=== PATIENT | male | born 1965 | race Caucasian/White ===

== ENCOUNTER 2017-09-26 03:38 | Emergency (ER) | payer BC ==
[~2017-09-26] VITALS: Ht 180.3 cm; Wt 96.3 kg
[2017-09-26 05:30] VITALS: BP 150/93
== END 2017-09-26 05:30 | disposition home or self-care (01) ==
LOC: ED 03:38
DX: M10.071 Idiopathic gout, right ankle and foot (principal); I10 Essential (primary) hypertension; E78.00 Pure hypercholesterolemia, unspecified
CPT/HCPCS: J2270; Q0162